=== PATIENT | male | born 1945 | race Caucasian/White ===

== ENCOUNTER → 2021-12-06 09:42 | Outpatient (BNVA) | payer OTHER, SELFPAY | PROVIDERS: Family Provider Family Medicine; PCP Family Medicine; Referring Provider Family Medicine; Visit Provider Podiatrist Foot & Ankle Surgery | DX: M21.612 Bunion of left foot (principal); M79.671 Pain in right foot; M79.672 Pain in left foot; M21.42 Flat foot [pes planus] (acquired), left foot | CPT/HCPCS: 73630; 99204 ==

== ENCOUNTER 2022-07-20 13:19 | Emergency (ER) | payer OTHER, SELFPAY ==
[2022-07-20 13:22] VITALS: BMI 22.3
[2022-07-20 13:30] VITALS: BP 146/81; PULSE 103; RESP 16; TEMP 36.4; O2SAT 98
--- NOTE | 2022-07-20 15:46 | CT_ITS ---
WS: [id number] CT HEAD TECHNIQUE: Noncontrast CT of the head obtained from the skullbase to the vertex. CLINICAL INFORMATION: visual disturbance COMPARISON: None. DLP: 1052.[address] scans at [facility] use at least one of these dose optimization techniques: automated e xposure control; mA and/or kV adjustment per patient size (includes targeted exams where dose is matc hed to clinical indication); or iterative reconstruction. FINDINGS: No evidence of intracranial hemorrhage or mass effect. Ventricular system and basal cisterns are baum nt. Moderate small vessel changes with moderate parenchymal volume loss. No extra-axial fluid collect ions. No evidence of mass or mass effect. Vascular calcification. Paranasal sinuses and mastoid air cells are well aerated. .Normal visualized soft tissues. Normal pos terior nasopharynx. CT/CT head wo con* [id number] IMPRESSION: 1. No evidence of intracranial hemorrhage or mass effect. 2. . Moderate small vessel changes with moderate parenchymal volume loss. 3. No acute intracranial findings.
[2022-07-20 16:18] LABS: Basophils % 0.5 %; Eosinophils # 0.3 10^3/uL (0.0-0.8); Eosinophils % 4.3 %; Hematocrit 47.8 % (42.0-52.0); Lymphocytes # 2.2 10^3/uL (0.8-4.8); Lymphocytes % 27.7 %; Mean Corpuscular HGB Conc 33.5 g/dL (30.0-36.0); Mean Corpuscular Hemoglobin 31.1 pg (28.0-34.0); Mean Corpuscular Volume 92.8 fl (80-94); Mean Platelet Volume 9.2 fL (7.4-10.4); Monocytes # 0.6 10^3/uL (0.2-0.9); Monocytes % 7.5 %; Neutrophils % 59.7 %; Nucleated Red Blood Cells % 0 %; Platelet Count 202 10^3/cmm (130-400); Red Blood Count 5.15 10^6/uL (4.1-5.3); Red Cell Distribution Width 13.6 % (12.1-15.1); White Blood Count 7.9 10^3/uL (4.0-10.0)
[2022-07-20 16:33] LABS: Alanine Aminotransferase 16 U/L (0-41); Albumin Level 4.3 g/dL (3.5-5.2); Alkaline Phosphatase 95 U/L (40-130); Anion Gap 13.7 (5-19); Aspartate Amino Transferase 21 U/L (0-40); Blood Urea Nitrogen 12 mg/dL (8-23); Calcium 9.8 mg/dL (8.5-10.5); Carbon Dioxide 28 mmol/L (22-29); Chloride 102 mmol/L (98-107); Globulin 3.2 g/dL (1.3-4.6); Glucose 125 mg/dL (65-115); Osmolality Calculated 289 mOsm/kg (285-295); Potassium 4.7 mmol/L (3.5-5.1); Sodium 139 mmol/L (136-145); Total Bilirubin 0.7 mg/dL (0.15-1.2); Total Protein 7.5 g/dL (6.6-8.7)
--- NOTE | 2022-07-20 16:39 | W.ED.NEUROSD ---
HPI - Neuro Symptoms/Deficit General: Chief Complaint: Neuro Symptoms/Deficit Stated Complaint: Memory issues, Numbness in left arm, Blurry vision Time Seen by Provider: 07/20/22 15:46 Source: patient Mode of arrival: ambulatory History of Present Illness: 77-year-old male who comes in complaining of intermittent vision loss and difficulty with his left hand. He states of loss of vision for a couple of minutes and then numbness in the left arm 40 coats is a while and over resolved. He took a baby aspirin this morning. He is no history no previous history of strokes or seizures he has something wrong with his eye it sounds like he may have a retinal tear or detachment of some sort. He is not able to tell me exactly what it is but he is scheduled for surgery for it. He has full vision now and a normal exam. Is been happening intermittently for some time. He is completely asymptomatic now. Onset (ago): day(s) Associated symptoms: Deny chest pain, malaise, nausea or vomiting Review of Systems Const: Denies: fever(s), chills, body aches, change in appetite, fatigue or malaise ENMT: Denies: throat pain, ear or mastoid pain, nasal discharge or nasal congestion Card: Denies: chest pain, edema, dyspnea on exertion or orthopnea Resp: Denies: dyspnea, productive cough or non-productive cough GI: Denies: abdominal pain, nausea, vomiting, hematemesis, coffee ground emesis, diarrhea, constipation, bloating, hematochezia or melena : Denies: flank pain, dysuria, urinary frequency or urinary urgency Skin/Breast: Denies: rash or pruritus Physical Exam Const: GENERAL APPEARANCE: cooperative and comfortable ORIENTATION/CONSCIOUSNESS: Yes awake, Yes oriented to person, Yes oriented to place and Yes oriented to time HENMT: COMMON NORMALS: normocephalic, atraumatic and hearing grossly normal bilaterally HEAD & SCALP: normocephalic and atraumatic Resp: COMMON NORMALS: normal respiratory effort, No retractions, No use of accessory muscles and clear to auscultation bilaterally AUSCULTATION: clear to auscultation bilaterally Cardio: COMMON NORMALS: regular rate, regular rhythm and No murmurs present (Cardio) RATE: regular rate RHYTHM: regular rhythm GI: COMMON NORMALS: Soft to palpation and No hepatosplenomegaly present AUSCULTATION: Yes normoactive bowel sounds PALPATION: Yes Soft to palpation, No Tenderness to palpation present (GI), No Guarding due to palpation present (GI) and Yes No hepatosplenomegaly present Extremity: COMMON NORMALS: normal to inspection, capillary refill normal, no clubbing, cyanosis or edema, no calf tenderness and no pedal edema Neuro: SENSORIUM/ORIENTATION: Yes oriented to person, Yes oriented to place and Yes oriented to time Skin: COMMON NORMALS: no rashes or lesions noted GENERAL SKIN EXAM: no rashes or lesions noted Course Vital Signs: Vital signs: Vital Signs Temperature 97.5 F L 07/20/22 13:30 Pulse Rate 89 07/20/22 17:08 Respiratory Rate 16 07/20/22 17:08 Blood Pressure 140/87 07/20/22 17:08 Pulse Oximetry 95 07/20/22 17:08 Oxygen Delivery Me thod 07/20/22 16:46 MDM - Neuro Symptoms/Deficit Medical Decision Making Patient is seen complaining of memory issues numbness left arm blurry vision at times he is losing his vision however he has no symptoms at all. Stroke score is 0 he is no active symptoms at this time its been going on at various degrees for the last couple of months and seems to be worsening. He is telling me that he has a scheduled surgery for some kind of retinal injury and I told him not to take any aspirin. Discussed with him and his son normally for stroke prevention if it were he had concerns of TIAs we did start him on aspirin and/or Plavix along with atorvastatin however I am concerned that we may cause an further problems with his retinal injury. He is reporting having complete loss of vision which I suspect more is going to be a mass effect at the optic chiasm and he should have an MRI. CT of the head today did not show any acute changes bleed or masses. We will set up outpatient MRI and encouraged him to follow-up ophthalmology return if he has active symptoms. Medical Records I reviewed the patient's medical records. Lab Data I reviewed the patient's lab results. 07/20/22 16:07 07/20/22 16:[address] 07/20/22 15:46 IMPRESSION: 1. No evidence of intracranial hemorrhage or mass effect. 2. . Moderate small vessel changes with moderate parenchymal volume loss. 3. No acute intracranial findings. Laboratory Results WBC 7.9 10^3/uL (4.0-10.0) 07/20/22 16:07 RBC 5.15 10^6/uL (4.1-5.3) 07/20/22 16:07 Hgb 16.0 g/dL (11.7-16.6) 07/20/22 16:07 Hct 47.8 % (42.0-52.0) 07/20/22 16:07 MCV 92.8 fl (80-94) 07/20/22 16:07 MCH 31.1 pg (28.0-34.0) 07/20/22 16:07 MCHC 33.5 g/dL (30.0-36.0) 07/20/22 16:07 RDW 13.6 % (12.1-15.1) 07/20/22 16:07 Plt Count 202 10^3/cmm (130-400) 07/20/22 16:07 MPV 9.2 fL (7.4-10.4) 07/20/22 16:07 Neut % (Auto) 59.7 % 07/20/22 16:07 Lymph % (Auto) 27.7 % 07/20/22 16:07 Simpson % (Auto) 7.5 % 07/20/22 16:07 Eos % (Auto) 4.3 % 07/20/22 16:07 Baso % (Auto) 0.5 % 07/20/22 16:07 Neut # (Auto) 4.70 10^3/uL (1.8-7.7) 07/20/22 16:07 Lymph # (Auto) 2.2 10^3/uL (0.8-4.8) 07/20/22 16:07 Simpson # (Auto) 0.6 10^3/uL (0.2-0.9) 07/20/22 16:07 Eos # (Auto) 0.3 10^3/uL (0.0-0.8) 07/20/22 16:07 Baso # (Auto) 0.0 10^3/uL (0.0-0.1) 07/20/22 16:07 Nucleated RBC % (auto) 0 % 07/20/22 16:07 Nucleated RBCs # 0.0 /100WBC 07/20/22 16:07 Sodium 139 mmol/L (136-145) 07/20/22 16:07 Potassium 4.7 mmol/L (3.5-5.1) 07/20/22 16:07 Chloride 102 mmol/L (98-107) 07/20/22 16:07 Carbon Dioxide 28 mmol/L (22-29) 07/20/22 16:07 Anion Gap 13.7 (5-19) 07/20/22 16:07 BUN 12 mg/dL (8-23) 07/20/22 16:07 Creatinine 1.1 mg/dL (0.7-1.2) 07/20/22 16:07 GFR Calculation Not Reportable 07/20/22 16:07 Glucose 125 mg/dL (65-115) H 07/20/22 16:07 Calculated Osmolality 289 mOsm/kg (285-295) 07/20/22 16:07 Calcium 9.8 mg/dL (8.5-10.5) 07/20/22 16:07 Total Bilirubin 0.7 mg/dL (0.15-1.2) 07/20/22 16:07 AST 21 U/L (0-40) 07/20/22 16:07 ALT 16 U/L (0-41) 07/20/22 16:07 Alkaline Phosphatase 95 U/L (40-130) 07/20/22 16:07 Total Protein 7.5 g/dL (6.6-8.7) 07/20/22 16:07 Albumin 4.3 g/dL (3.5-5.2) 07/20/22 16:07 Globulin 3.2 g/dL (1.3-4.6) 07/20/22 16:07 Discharge Plan Discharge Patient Disposition: Home Clinical Impression: Vision changes Condition: Stable Prescriptions: New atorvastatin 40 mg tablet 40 mg PO DAILY Qty: 30 0RF No Action betamethasone valerate 0.1 % cream 1 applic topical DAILY PRN (DME) Custom Low Profile Insoles and Orthopedic Shoes See Rx Instructions .Route .MEDSUPPLY Qty: 1 0RF Rx Instructions: As directed Discharge Orders: Discharge ED (Routine); Ordered 07/20/22 Ordered By: Eliazar Jensen Referrals: Douglas Gallegos [Primary Care Provider] - Discharge Diet: Usual diet Discharge Activity: Limit activity as instructed Patient Instructions: Opioid Safety, Pain Management Activity Restrictions/Additional Instructions: You are seen today with reports of vision changes. Recommend that you have an MRI of the brain with and without contrast Case management will set this up you should follow-up with your doctor and with your eye doctor. Normally we would recommend that you take aspirin and Plavix along with atorvastatin as prevention for stroke stroke or TIA however because of your upcoming eye surgery I am concerned that that may actually increase risk injury to your eye and recommend that you take the atorvastatin only for now. Follow-up with your primary care doctor and/or your ophthalmology surgeon as soon as you are able. Coding Level of Care Code ED Commercial Painter for Mitch Nixon
[2022-07-20 16:46] VITALS: BP 122/71; PULSE 82; RESP 16; O2SAT 96
[2022-07-20 17:08] VITALS: BP 140/87; PULSE 89; RESP 16; O2SAT 95
--- NOTE | 2022-07-24 10:29 | DCPLANNER ---
Addendum entered by Palma Morse 07/24/22 11:51: clinical team manager received notification from the [facility] that patients [facility] provider will order the MRI if needed. Original Note: clinical team manager had message to schedule an outpatient MRI for patient. Patient has [facility] insurance, the test cannot be ordered from the ER, patient was referred to neurology. clinical team manager sent patients information to the front office staff at neurology. Patients information will be printed and reviewed. Clinic will call patient with appointment information.
== END 2022-07-20 17:10 | disposition home or self-care (01) ==
PROVIDERS: Emergency Provider Family Medicine; PCP Family Medicine
DX: H53.9 Unspecified visual disturbance (principal)
CPT/HCPCS: 36415; 70450; 80053; 85025; 99284

== ENCOUNTER 2022-08-03 11:35 | Outpatient (CLI) | payer OTHER, SELFPAY ==
--- NOTE | 2022-08-03 11:45 | USCV_ITS ---
TitaFord kirk Age: 77 Gender: M : 1945 Exam Date: 08/03/2022 12:20 Ordering Phys: Breanne Langley MD Technologist: Amelia Villalba [place] [facility] [place]ication: TIA Risk Factors: None Previous Vascular Surgery: None Right Brachial BP: / Left Brachial BP: / Right Left Velocity (cm/s) Spectral Plaque Velocity (cm/s) Spectral Plaque Syst/Diast Broadening Syst/Diast Broadening 76.20/ 13.10 Prox CCA 71.80 / 8.50 57.80/ 9.20 Mid CCA 79.50 / 14.50 45.30/ 6.80 Hetro Distal CCA 64.10 / 15.40 Homo 402.60/159.50 Hetro Prox ICA 97.30 / 22.30 Hetro 164.90/52.30 Homo Mid ICA 131.50/ 35.50 Hetro 36.00/ 12.00 Distal ICA 85.40 / 25.00 177.10 ECA 103.90 5.28 ICA/CCA 1.65 Antegrade Vertebral Antegrade 61.10/ 9.90 cm/s 66.70/ 12.00 cm/s Tri Subclavian Tri 124.1 0 CONCLUSIONS Right ICA stenosis 70-99%. Recommend CTA neck. Severe atheromatous plaque right carotid bulb/ICA. Left ICA stenosis <50%. Mild atheromatous plaque left carotid bulb/ICA. Normal antegrade Doppler flow noted in the right vertebral artery. Normal antegrade Doppler flow noted in the left vertebral artery. Giovanny Katz MD (Electronically Signed) Final Date: 03 August 2022 14:34 S
== END 2022-08-03 11:36 | disposition home or self-care (01) ==
LOC: RAD 11:36
PROVIDERS: PCP Family Medicine; Visit Provider Family Medicine
DX: G45.9 Transient cerebral ischemic attack, unspecified (principal)
CPT/HCPCS: 93880

== ENCOUNTER → 2022-09-06 08:10 | Outpatient (BNVA) | payer OTHER, SELFPAY | PROVIDERS: PCP Family Medicine; Visit Provider Thoracic Surgery (Cardiothoracic Vascular Surgery) | DX: I65.23 Occlusion and stenosis of bilateral carotid arteries (principal); Z87.891 Personal history of nicotine dependence; Z79.82 Long term (current) use of aspirin | CPT/HCPCS: 99203 ==

== ENCOUNTER 2022-09-08 07:21 | Outpatient (CLI) | payer OTHER, SELFPAY ==
[2022-09-08] MEDS: iohexol 350 mg/mL 500 mL Btl (per mL) IV (07:43)
--- NOTE | 2022-09-08 08:00 | CT_ITS ---
WS: [id number] CT ANGIOGRAM CAROTID ARTERIES HISTORY: bilat carotid stenosis TECHNIQUE: CT angiogram is performed of the carotid arteries. During arterial injection imaging is ob tained from the skull base to the aortic arch in 1.25 mm imaging. Coronal and sagittal reformats are submitted, MIP imaging also reviewed. Additional multiplanar reformats of the carotid arteries are verdugo bmitted. NASCET criteria utilized. All CT scans at [facility] use at least one of these dose optimization techniques: automated exposure control; mA and/or kV adjustment per patient size (includ es targeted exams where dose is matched to clinical indication); or iterative reconstruction. CONTRAST: Omnipaque 350; 100 mL IV. DLP: 219.61 mGy.cm COMPARISON: Carotid ultrasound 08/03/2022 Right carotid: Common carotid artery: Atherosclerotic plaque. No high-grade stenosis in the proximal and mid carotid artery. Increasing plaque and stenosis at the bifurcation. High-grade stenosis begins at the very di stal RIGHT common carotid artery near the bifurcation. Internal carotid artery: Very high-grade stenosis at the origin of the RIGHT ICA extending into the b ifurcation. There is greater than 50% stenosis at the very distal common carotid artery with a high-g rade stenosis in the proximal RIGHT ICA. Proximal RIGHT ICA stenosis estimated near 90%. There is sli ght post stenotic dilatation. External carotid artery is patent. External carotid artery: Patent. Left carotid: Common carotid artery: Arises normally from the aortic arch. No significant stenosis. Internal carotid artery: Small amount of plaque but no stenosis. External carotid artery: Patent. Right vertebral artery: Unremarkable. Left vertebral artery: Unremarkable. Arises normally from the left subclavian artery. Subclavian arteries: Mild atherosclerosis noted bilaterally but no high-grade stenosis. Upper thorax: Centrilobular emphysema at the apices. Moderate atherosclerotic plaque and intimal thic kening in the aorta. Thyroid gland: Normal. Osseous structures: Moderate cervical spondylosis. Skull base: No destruction. Near complete opacification LEFT maxillary sinus. CT/CT angio neck 82612 IMPRESSION: 1. High-grade RIGHT ICA stenosis near 90%. Stenosis extends to involve the pj y distal RIGHT common carotid artery with extension into the RIGHT ICA. Correla atif with prior carotid ultrasound. 2. Less than 50% stenosis LEFT ICA.
[2022-09-08 08:15] LABS: Blood Urea Nitrogen 6 mg/dL (8-23)
== END 2022-09-08 07:22 | disposition home or self-care (01) ==
PROVIDERS: PCP Family Medicine; Visit Provider Thoracic Surgery (Cardiothoracic Vascular Surgery)
DX: I65.23 Occlusion and stenosis of bilateral carotid arteries (principal)
CPT/HCPCS: 70498; 82565; 84520; Q9967

== ENCOUNTER → 2022-09-13 12:33 | Outpatient (BNVA) | payer OTHER, SELFPAY | PROVIDERS: PCP Family Medicine; Visit Provider Thoracic Surgery (Cardiothoracic Vascular Surgery) | DX: I65.21 Occlusion and stenosis of right carotid artery (principal); Z87.891 Personal history of nicotine dependence | CPT/HCPCS: 99213 ==

== ENCOUNTER 2022-10-02 07:14 | Day surgery (SDC) | payer OTHER, SELFPAY ==
[2022-09-27 12:58] VITALS: BMI 22.7
[2022-09-27 13:29] LABS: Add Urine Microscopic? NO; Charge for UA Resulting for Rev
--- NOTE | 2022-09-27 13:31 | ECG_ITS ---
[facility] Test Date: 2022-09-27 Pat Name: Ford Brooks Department: Room: Gender: Male Account Manager Education: : 1945 Requested By: Yulissa Tamayo Order Number: [id number] Ethan MD: Darion Weston M.D. Measurements Intervals [place] Rate: 77 P: 0 FL: 0 QRS: -1 QRSD: 99 T: -18 QT: 371 QTc: 422 Interpretive Statements ATRIAL FIBRILLATION POSSIBLE LATERAL MYOCARDIAL INFARCTION , OF INDETERMINATE AGE [30 ms Q WAVE IN I/aVL/V5/V6] No previous ECG available for comparison Electronically Signed On 09-27-2022 21:32:51 CDT by Darion Weston M.D. [email or web address]
[2022-09-27 13:33] LABS: Basophils % 0.5 %; Eosinophils % 12.5 %; Hematocrit 45.2 % (42.0-52.0); Hemoglobin 14.7 g/dL (11.7-16.6); Lymphocytes # 1.9 10^3/uL (0.8-4.8); Lymphocytes % 22.4 %; Mean Corpuscular HGB Conc 32.5 g/dL (30.0-36.0); Mean Corpuscular Hemoglobin 30.8 pg (28.0-34.0); Mean Corpuscular Volume 94.8 fl (80-94); Mean Platelet Volume 9.6 fL (7.4-10.4); Monocytes # 0.6 10^3/uL (0.2-0.9); Monocytes % 7.6 %; Neutrophils # 4.69 10^3/uL (1.8-7.7); Neutrophils % 56.6 %; Nucleated Red Blood Cells % 0 %; Platelet Count 193 10^3/cmm (130-400); Red Blood Count 4.77 10^6/uL (4.1-5.3); Red Cell Distribution Width 13.9 % (12.1-15.1); White Blood Count 8.3 10^3/uL (4.0-10.0)
[2022-09-27 13:36] LABS: Bilirubin Urine Neg (Negative); Blood Urine Neg (Negative); Glucose Urine UA Norm (Normal); Ketones Urine Negative (Negative); Leukocyte Esterase Urine Negative (Negative); Nitrate Urine Negative (Negative); Protein Urine Neg (Negative); Urine Appearance Clear (CLEAR); Urine Color Yellow (Yellow); Urobilinogen Urine 4 mg/dL (Negative); pH Urine 6 (5-7)
[2022-09-27 13:59] LABS: Anion Gap 13.2 (5-19); Blood Urea Nitrogen 15 mg/dL (8-23); Calcium 9.1 mg/dL (8.5-10.5); Carbon Dioxide 28 mmol/L (22-29); Chloride 105 mmol/L (98-107); Glucose 88 mg/dL (65-115); Osmolality Calculated 294 mOsm/kg (285-295); Potassium 4.2 mmol/L (3.5-5.1); Sodium 142 mmol/L (136-145)
--- NOTE | 2022-09-27 14:46 | SUR.PREOP ---
Pre-operative appointment Pre-op completed. Instructions given, as well as bathing instructions. Patient verbalized understanding. Hibiclens bottle and bar soap given to patient. Patient instructed to hold Aspirin from now until after surgery. CBC, CMP, Cardiac T&S, and UA completed today. EKG also performed today, shows possible A-fib. Patient denies any previous history of a-fib. Dr. Potter aware of EKG, requested repeat. Repeat completed and Dr. Potter requests cardiac clearance. Attempt to get ahold of Dr. Gan's office made multiple times, no answer. Patient instructed that either the clinic or OPS will call him with an update or an appointment date.
--- NOTE | 2022-09-27 17:56 | ANES.PREANE2 ---
Pre-Anesthetic Assessment Height/Weight: Height 1.8 m Weight 73.936 kg Preop Diagnosis: Right carotid artery stenosis Operation Date: 10/02/22 07:30 Proposed Procedures p Carotid Endarterectomy 39636,I65.29(Right) - Douglas Gan MD Familial anesthetic complications: None Social No alcohol and No tobacco Exam alert, oriented x 3, clear to auscultation bilaterally and regular rate & rhythm Airway Mallampati: Class II Dentition: full CV/HEM a fib on EKG - will refer to cardiology, able to achieve > 4 MET without cardiac symptoms Anesthetic Plan ASA status: 3 Anesthesia: General Risk of > 500 ml blood loss (7ml/kg in children): Yes, adequate IV access and fluids planned Medications/Allergies Home Medications Medication Instructions Recorded Confirmed Last Taken Type Custom Low Profile Insoles and #1 ea 12/06/21 09/13/22 Unknown Rx Orthopedic Shoes betamethasone valerate 0.1 % 1 applic topical DAILY PRN psorasis 12/06/21 09/27/22 Unknown History topical cream atorvastatin 40 mg tablet 40 mg PO DAILY #30 tabs 07/20/22 09/27/22 09/26/22 Rx aspirin 81 mg tablet,delayed 81 mg PO DAILY 09/06/22 09/27/22 09/27/22 History release (Adult Low Dose Aspirin) ascorbic acid (vitamin C) 100 mg 100 mg PO DAILY 09/27/22 09/27/22 09/27/22 History tablet (Vitamin C) calcium phosphate,dibasic 77 tab PO 09/27/22 09/27/22 History mg-vitamin D3 400 unit tablet melatonin 10 mg tablet 10 mg PO DAILY 09/27/22 09/27/22 09/27/22 History multivitamin-iron (hematinic) tab 09/27/22 09/27/22 History Allergies Allergy/AdvReac Type Severity Reaction Status Date / Time Penicillins Allergy Unknown Unknown Verified 09/13/22 13:07 COUNTS INCLUDE 234 BEDS AT THE [facility] Anesthesia Medical History Carotid stenosis, bilateral Family History Father Hypertension Mother Hypertension Denies family history of Diabetes CAD (coronary artery disease) Cancer Social History Smoking and tobacco status: former smoker Quit status (tobacco): has quit using tobacco Year quit tobacco: 2008 Former quit date comment: smoked 3-4 packs per day for 40 years Alcohol intake: never Substance/Drug Use: current Substance/Drug use frequency: few times a week Household members: none Housing: House Marital status: Single Number of children: 0 service: Yes Pets and animals: No Data Anesthesia 09/27/22 12:58 09/27/22 12:58 Short CBC 09/27/22 Range/Units 12:58 WBC 8.3 (4.0-10.0) 10^3/uL Hgb 14.7 (11.7-16.6) g/dL Hct 45.2 (42.0-52.0) % MCV 94.8 H (80-94) fl Plt Count 193 (130-400) 10^3/cmm Neut % (Auto) 56.6 % Neut # (Auto) 4.69 (1.8-7.7) 10^3/uL BMP 09/27/22 12:58 Sodium 142 Potassium 4.2 Chloride 105 Carbon Dioxide 28 BUN 15 Creatinine 0.9 Glucose 88 Calcium 9.1 Urine 09/27/22 Range/Units 13:12 Urine Color Yellow (Yellow) Urine Appearance Clear (CLEAR) Urine pH 6 (5-7) Ur Specific [place] 1.020 (1.005-1.030) Urine Protein Neg (Negative) Urine Glucose (UA) Norm (Normal) Urine Ketones Negative (Negative) Urine Nitrate Negative (Negative) Urine Bilirubin Neg (Negative) Ur Leukocyte Esterase Negative (Negative) Blood Bank 09/27/22 12:58 Blood Type O Negative Rho(D) Type Negative Antibody Screen Negative Cardiac Studies: No Data to Display
== END 2022-10-05 07:15 | disposition home or self-care (01) ==
LOC: OR 10-05 07:14
PROVIDERS: PCP Family Medicine; Visit Provider Thoracic Surgery (Cardiothoracic Vascular Surgery)
DX: Z01.818 Encounter for other preprocedural examination (principal); I48.91 Unspecified atrial fibrillation; I65.21 Occlusion and stenosis of right carotid artery; Z87.891 Personal history of nicotine dependence
CPT/HCPCS: 36415; 80048; 81003; 85025; 86850; 86900; 86920; 93005

== ENCOUNTER → 2022-11-06 12:40 | Outpatient (BNVA) | payer OTHER, SELFPAY | PROVIDERS: PCP Family Medicine; Visit Provider Internal Medicine Cardiovascular Disease | DX: I65.23 Occlusion and stenosis of bilateral carotid arteries (principal); Z87.891 Personal history of nicotine dependence; Z79.82 Long term (current) use of aspirin | CPT/HCPCS: 99203 ==

== ENCOUNTER → 2022-11-15 09:42 | Outpatient (BNVA) | payer OTHER, SELFPAY | PROVIDERS: PCP Family Medicine; Visit Provider Thoracic Surgery (Cardiothoracic Vascular Surgery) | DX: I65.21 Occlusion and stenosis of right carotid artery (principal); Z87.891 Personal history of nicotine dependence | CPT/HCPCS: 99213 ==

== ENCOUNTER 2022-11-21 16:22 | Inpatient (IN) | payer OTHER, SELFPAY ==
[2022-11-19 07:17] VITALS: BMI 23.0
[2022-11-19 07:44] LABS: Basophils % 0.3 %; Eosinophils # 0.4 10^3/uL (0.0-0.8); Hematocrit 45.4 % (42.0-52.0); Hemoglobin 14.7 g/dL (11.7-16.6); Lymphocytes # 1.8 10^3/uL (0.8-4.8); Lymphocytes % 24.7 %; Mean Corpuscular HGB Conc 32.4 g/dL (30.0-36.0); Mean Corpuscular Hemoglobin 30.1 pg (28.0-34.0); Mean Platelet Volume 9.7 fL (7.4-10.4); Monocytes # 0.6 10^3/uL (0.2-0.9); Monocytes % 7.7 %; Neutrophils # 4.34 10^3/uL (1.8-7.7); Nucleated Red Blood Cells % 0 %; Platelet Count 172 10^3/cmm (130-400); Red Blood Count 4.88 10^6/uL (4.1-5.3); Red Cell Distribution Width 14.2 % (12.1-15.1); White Blood Count 7.1 10^3/uL (4.0-10.0)
--- NOTE | 2022-11-19 07:59 | P.ANESASSM_ITS ---
Pre-Anesthetic Assessment Height/Weight: Height 1.8 m Weight 74.843 kg Operation Date: 11/21/22 12:00 Proposed Procedures p right carotid 15092,I65.29(Right) - Douglas Gan MD Familial anesthetic complications: None Social No alcohol and No tobacco Exam alert, oriented x 3, clear to auscultation bilaterally and regular rate & rhythm Airway Mallampati: Class II Dentition: false Pulmonary None reported CV/HEM Atrial Fibrillation (Seen by Dr. Benavides) and None reported None reported Hepatic None reported GI None reported Metabolic None reported Neuropsych None reported Anesthetic Plan ASA status: 3 Anesthesia: General Other: A-line Risk of > 500 ml blood loss (7ml/kg in children): Yes, adequate IV access and fluids planned Medications/Allergies Home Medications Medication Instructions Recorded Confirmed Last Taken Type Custom Low Profile Insoles and #1 ea 12/06/21 11/15/22 11/18/22 Rx Orthopedic Shoes betamethasone valerate 0.1 % 1 applic topical DAILY PRN psorasis 12/06/21 11/19/22 11/18/22 History topical cream atorvastatin 40 mg tablet 40 mg PO DAILY #30 tabs 07/20/22 11/19/22 11/18/22 Rx aspirin 81 mg tablet,delayed 81 mg PO DAILY 09/06/22 11/19/22 11/18/22 History release (Adult Low Dose Aspirin) ascorbic acid (vitamin C) 100 mg 100 mg PO DAILY 09/27/22 11/19/22 11/18/22 History tablet (Vitamin C) calcium phosphate,dibasic 77 1 tab PO DAILY 09/27/22 11/19/22 11/18/22 History mg-vitamin D3 400 unit tablet melatonin 10 mg tablet 10 mg PO DAILY 09/27/22 11/19/22 11/18/22 History multivitamin-iron (hematinic) 1 tab PO DAILY 09/27/22 11/19/22 11/18/22 History Allergies Allergy/AdvReac Type Severity Reaction Status Date / Time Penicillins Allergy Unknown Unknown Verified 11/19/22 07:25 [facility] Anesthesia Medical History Carotid stenosis, bilateral Family History Father Hypertension Mother Hypertension Denies family history of Diabetes CAD (coronary artery disease) Cancer Social History Smoking and tobacco status: former smoker Quit status (tobacco): has quit using tobacco Year quit tobacco: 2008 Former quit date comment: smoked 3-4 packs per day for 40 years Alcohol intake: never Substance/Drug Use: current Substance/Drug use frequency: few times a week Household members: none Housing: House Marital status: Single Number of children: 0 service: Yes Pets and animals: No Data Anesthesia 11/19/22 07:30 11/19/22 07:30 Short CBC 11/19/22 Range/Units 07:30 WBC 7.1 (4.0-10.0) 10^3/uL Hgb 14.7 (11.7-16.6) g/dL Hct 45.4 (42.0-52.0) % MCV 93.0 (80-94) fl Plt Count 172 (130-400) 10^3/cmm Neut % (Auto) 61.0 % Neut # (Auto) 4.34 (1.8-7.7) 10^3/uL Cardiac Studies: No Data to Display
[2022-11-19 08:05] LABS: Alanine Aminotransferase 21 U/L (0-41); Albumin Level 4.1 g/dL (3.5-5.2); Alkaline Phosphatase 181 U/L (40-130); Anion Gap 12.7 (5-19); Aspartate Amino Transferase 28 U/L (0-40); Blood Urea Nitrogen 14 mg/dL (8-23); Calcium 9.3 mg/dL (8.5-10.5); Carbon Dioxide 27 mmol/L (22-29); Chloride 103 mmol/L (98-107); Globulin 3.2 g/dL (1.3-4.6); Glucose 116 mg/dL (65-115); Osmolality Calculated 287 mOsm/kg (285-295); Potassium 4.7 mmol/L (3.5-5.1); Sodium 138 mmol/L (136-145); Total Bilirubin 0.9 mg/dL (0.15-1.2); Total Protein 7.3 g/dL (6.6-8.7)
[2022-11-19 08:09] LABS: Add Urine Microscopic? NO; Charge for UA Resulting for Rev
[2022-11-19 08:25] LABS: Bilirubin Urine Neg (Negative); Blood Urine Neg (Negative); Glucose Urine UA Norm (Normal); Ketones Urine Negative (Negative); Leukocyte Esterase Urine Negative (Negative); Nitrate Urine Negative (Negative); Protein Urine Neg (Negative); Urine Appearance Clear (CLEAR); Urine Color Yellow (Yellow); Urobilinogen Urine 1 mg/dL (Negative); pH Urine 5 (5-7)
[2022-11-21] VITALS (17 sets, daily range): BP systolic 99–136; BP diastolic 49–78; PULSE 72–94; RESP 13–29; TEMP 36.7; O2SAT 93–100
[2022-11-21] MEDS: sodium chloride 0.9% 1,000 ML 30 ML IV (11:14)
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
--- NOTE | 2022-11-21 11:54 | P.ANESUD_ITS ---
Pre-Anesthetic Update Pre-Anesthetic Assessment: Date of Surgery/Procedure: 11/21/22 Preop Amira gnosis: right carotid endarterectomy Proposed Procedure: Operation Date: 11/21/22 12:00 Proposed Procedures p right carotid 42262,I65.29(Right) - Douglas Gan MD Any changes to Pre-Anesthetic Assessment?: No Last Intake: Intake Last Liquid Date 11/20/22 Last Liquid Time 17:00 Last Solid Date 11/20/22 Last Solid Time 17:00 Vitals: Temperature 98.0 F 11/21/22 10:37 Temperature Source Temporal Artery S can 11/21/22 10:37 Pulse Rate 81 11/21/22 10:37 Respiratory Rate 17 11/21/22 10:37 Blood Pressure 135/77 11/21/22 10:37 Blood Pressure Cat n 96 11/21/22 10:37 Pulse Oximetry 98 11/21/22 10:37 Oxygen Delivery Me thod Room Air 11/21/22 10:53 Exam: Pre-Anes Outpt Exam: alert, oriented x 3, clear to auscultation bilaterally and regular rate & rhythm Cardiac Studies: No Data to Display
[2022-11-21] MEDS: vancomycin 1,500 MG/300 ML PIGGYBACK 200 MG IV (12:15)
[2022-11-21] MEDS: heparin,porcine 1,000 unit/mL INJ 1 mL 1000 UNIT IRRIGATION (13:25)
[2022-11-21] MEDS: vancomycin 1,000 MG SDV 1000 MG IRRIGATION (13:28)
--- NOTE | 2022-11-21 16:23 | ANE.PACU2 ---
Inpatient post-anesthesia follow up: Airway intact: Yes Vital signs: Temperature 98.0 F Pulse Rate 81 Respiratory Rate 17 Blood Pressure 135/77 Pulse Oximetry 98 Oxygen Delivery Me thod Room Air Oxygen Flow Rate Fraction of Inspir ed Oxygen Hydration adequate: Yes Nausea and vomiting: No Pain level: 1 Mental status: Baseline
--- NOTE | 2022-11-21 16:29 | P.OP_ITS ---
Operative Report Date of procedure: November 21, 2022 Pre-op diagnosis: Preop Diagnosis 90% right internal carotid artery stenosis Post-op diagnosis: same Post-op findings: Very friable right carotid artery plaque Procedure done: Right carotid endarterectomy with patch angioplasty Implants: Hemashield patch Specimens removed/disposition: Friable carotid plaque in pieces Surgeon: Douglas Gan Estimated blood loss (mL): 50 Urine output (mL): 1,000 Complications: None Findings: Very friable plaque at carotid bifurcation and proximal right ICA. Condition: stable Disposition: ICU Brief History: Mr. Brooks is a pleasant 77-year-old gentleman with a 90% right ICA stenosis and a 2-month history of progressive frequency of TIAs which included right amaurosis and left upper extremity weakness. Due to his high-grade lesion and TIA symptoms, carotid endarterectomy was recommended to reduce his statistical increased risk for spontaneous CVA. Details, rationale, and risks of the surgery were very carefully and frankly discussed. Appropriate consents were reviewed and signed. Procedure: Mr. Brooks was placed on the OR table and underwent general endotracheal anesthesia with a neurological monitoring endotracheal tube as well as placement of a right radial arterial line. Bihemispheric monitoring pads were placed as well as grounding and sensing pads for nerve conduction evaluation during neck dissection.The entire upper chest and right neck were sterilely prepped and draped. Incision was made along the anterior border of the sternomastoid muscle and carried down to the platysma with cautery. Dissection from this point forward was carried out utilizing Metzenbaum scissors and limited use of bipolar cautery. The internal jugular vein was dissected free and the facial vein was ligated, oversewn, and divided. Dissection was continued down through the ansa cervicalis with preservation of major branches. Minor branches were divided if required to allow for adequate exposure. Nerve conduction evaluation was performed throughout the dissection for protection of the recurrent nerve. We subsequently reached the common carotid artery. Dissection was then continued proximally to distally across the bifurcation. Vessel loops were placed around the common carotid artery, internal carotid artery, and external carotid artery. Distally, the base of the hypoglossal nerve could be identified and was protected. The internal carotid artery disease went fairly high and extended above the level of the mandibular angle. This did require some traction in this region, but great care was taken to minimize pressure to the hypoglossal nerve, which was protected. Care was taken during this dissection to avoid injury to the vagus nerve. The patient was then heparinized with 10,000 units. The systolic blood pressure was elevated to 160. Following this, in a rapid sequenced fashion, the distal internal carotid artery was clamped followed by clamping of the common carotid artery and external carotid artery. #11 scalpel blade was used to open the common carotid artery proximally. Forte scissors were then utilized to extend this arteriotomy across the distal common carotid artery and ulcerated, very friable, and stenotic plaque and continue this further at the bifurcation across the calcific plaque in the internal carotid artery until we had reached normal intima. The internal carotid artery clamp was briefly flashed with evidence of brisk back bleeding, therefore we elected not to shunt. It should be noted that bi-hemispheric oximetry was recorded throughout the procedure. Next, a freer elevator was utilized to create a dissection plane the plaque from intima at the proximal portion of the arteriotomy. This was then divided with a #11 scalpel blade. This plaque was then further dissected along the intimal plane proxim ally to distally across the bifurcation. Utilizing an everting technique, plaque was removed from the external carotid artery with brisk flow. This plaque was then dissected free up the internal carotid artery to a feathered edge. The plaque was very friable and was removed in multiple pieces. Heparinized saline solution was utilized to remove any loose debris. Next, a Hemashield patch was brought into the field and sewn into position utilizing a running 6-0 Prolene suture, thereby completing our patch angioplasty. At the completion of the patch, the external carotid artery was opened followed by the common carotid artery and finally the internal carotid artery, thereby reestablishing cerebral flow. Areas of extravasation were repaired with 6-0 Prolene suture. I elected not to reverse heparin. Hemostasis was confirmed. The wound was irrigated with antibiotic solution. A small, flat, Fransico-Lopez drain was placed in the wound and connected to bulb suction. Sponge and needle count was correct. The wound was then closed in 2 layers of 3-0 Vicryl suture. Skin was reapproximated in a subcuticular manner with 4-0 Monocryl suture. A pressure dressing was then applied. He was awakened from anesthesia and spontaneous movement of all extremities as well as movement to command. Mr. Brooks will be monitored in the ICU for the next 24 hours.
[2022-11-21] MEDS: clopidogrel 75 mg Tablet PO (16:55)
[2022-11-21] MEDS: HYDROcodone-acetaminophen 5-325 mg Tablet 1 TAB PO (16:55)
[2022-11-21] MEDS: aspirin 325 mg Tablet 81 MG PO (16:55)
[2022-11-22] VITALS (19 sets, daily range): BP systolic 105–142; BP diastolic 57–77; PULSE 55–82; RESP 13–26; TEMP 36.1; O2SAT 93–98
--- NOTE | 2022-11-22 07:21 | P.DS_ITS ---
Discharge Providers Date of Admission: 11/21/22 16:22 Date of Discharge: November 22, 2022 Attending Provider at Admission: Douglas Gan MD Attending Provider at Discharge: Douglas Gan MD Primary Care Provider: Breanne Langley MD Reason for Visit Reason for Visit: 90% right internal carotid artery stenosis / TIA Brief History: Mr. Brooks is a 77-year-old gentleman referred to our service for recurrent TIA symptoms which included right amaurosis as well as left upper extremity weakness. Subsequent evaluation revealed increased velocities on carotid duplex study and confirmation of a 90% right ICA stenosis at the bifurcation by CTA. He was recommended that he undergo elective carotid endarterectomy for his high- grade lesion and concerns of embolization manifesting as TIA symptoms. Details of risk of procedure were carefully and frankly discussed. Mr. Brooks wished to proceed. Hospital Course Hospital Course Mr. Brooks was electively admitted on November 21 and underwent right carotid endarterectomy with patch angioplasty. Intraoperative findings included a very friable lesion in the proximal right ICA. Postoperatively, he convalesced in the ICU where he remained hemodynamically and neurologically stable and intact. He had low OZZIE drain output overnight and his OZZIE drain was discontinued this morning and his operative dressing was changed. He is tolerating diet well. No phonation or swallowing difficulties. He denies visual disturbances. Motor strength is 5/5 bilaterally. He remains in chronic atrial fibrillation. He will be discharged to home today in stable condition with scheduled follow-up in our clinic in 1 week. Physical Exam Const: COMMON NORMALS: no acute distress, patient oriented x3 and alert HENMT: COMMON NORMALS: normocephalic and atraumatic HEAD & SCALP: normocephalic and atraumatic Neck/C-Spine: COMMON NORMALS: no lymphadenopathy OTHER: Minimal swelling of the right side of the neck. Surgical incision is clean, dry, and intact. OZZIE drain was removed. 20 cc output overnight. Resp: COMMON NORMALS: normal respiratory effort and clear to auscultation bilaterally AUSCULTATION: clear to auscultation bilaterally Cardio: COMMON NORMALS: regular rate and No murmurs present (Cardio); negative for regular rhythm RATE: regular rate RHYTHM: abnormal rhythm OTHER: Chronic atrial fibrillation Extremity: COMMON NORMALS: no clubbing, cyanosis or edema Neuro: COMMON NORMALS: patient oriented x3, moves all extremities, no focal motor deficits and no sensory deficits noted SENSORIUM/ORIENTATION: Yes alert OTHER: Tongue is midline with protrusion. Voice quality is normal. No swallowing difficulties. Urinary Catheter Management: Cyr: Cath Placed During This Visit: yes Reason for Continuing Indwelling Catheter: Accurate Measurement of Urinary Output in Critically Ill Patients Urinary Catheter Date of Insertion: 11/21/22 Urinary Catheter Time of Insertion: 12:30 Discharge Data Studies Completed and Pending Pending at discharge Category Date Time Status Basic Metabolic Panel Routine Lab 11/21/22 10:10 Uncollected Complete Blood Count w/Auto Routine Lab 11/21/22 10:10 Uncollected Leukocyte Reduced RBC Routine Lab 11/21/22 10:57 Results Type and Screen Routine Lab 11/21/22 10:57 Results Urinalysis Routine Lab 11/21/22 10:10 Uncollected Pathology: Surgical [PTH] Routine Pth 11/21/22 15:56 Ordered Laboratory Results WBC 7.1 10^3/uL (4.0-10.0) 11/19/22 07:30 RBC 4.88 10^6/uL (4.1-5.3) 11/19/22 07:30 Hgb 14.7 g/dL (11.7-16.6) 11/19/22 07:30 Hct 45.4 % (42.0-52.0) 11/19/22 07:30 MCV 93.0 fl (80-94) 11/19/22 07:30 MCH 30.1 pg (28.0-34.0) 11/19/22 07:30 MCHC 32.4 g/dL (30.0-36.0) 11/19/22 07:30 RDW 14.2 % (12.1-15.1) 11/19/22 07:30 Plt Count 172 10^3/cmm (130-400) 11/19/22 07:30 MPV 9.7 fL (7.4-10.4) 11/19/22 07:30 Neut % (Auto) 61.0 % 11/19/22 07:30 Lymph % (Auto) 24.7 % 11/19/22 07:30 [place] % (Auto) 7.7 % 11/19/22 07:30 Eos % (Auto) 6.0 % 11/19/22 07:30 Baso % (Auto) 0.3 % 11/19/22 07:30 Neut # (Auto) 4.34 10^3/uL (1.8-7.7) 11/19/22 07:30 Lymph # (Auto) 1.8 10^3/uL (0.8-4.8) 11/19/22 07:30 [place] # (Auto) 0.6 10^3/uL (0.2-0.9) 11/19/22 07:30 Eos # (Auto) 0.4 10^3/uL (0.0-0.8) 11/19/22 07:30 Baso # (Auto) 0.0 10^3/uL (0.0-0.1) 11/19/22 07:30 Nucleated RBC % (auto) 0 % 11/19/22 07:30 Nucleated RBCs # 0.0 /100WBC 11/19/22 07:30 Sodium 138 mmol/L (136-145) 11/19/22 07:30 Potassium 4.7 mmol/L (3.5-5.1) 11/19/22 07:30 Chloride 103 mmol/L (98-107) 11/19/22 07:30 Carbon Dioxide 27 mmol/L (22-29) 11/19/22 07:30 Anion Gap 12.7 (5-19) 11/19/22 07:30 BUN 14 mg/dL (8-23) 11/19/22 07:30 Creatinine 1.0 mg/dL (0.7-1.2) 11/19/22 07:30 GFR Calculation Not Reportable 11/19/22 07:30 Glucose 116 mg/dL (65-115) H 11/19/22 07:30 Calculated Osmolality 287 mOsm/kg (285-295) 11/19/22 07:30 Calcium 9.3 mg/dL (8.5-10.5) 11/19/22 07:30 Total Bilirubin 0.9 mg/dL (0.15-1.2) 11/19/22 07:30 AST 28 U/L (0-40) 11/19/22 07:30 ALT 21 U/L (0-41) 11/19/22 07:30 Alkaline Phosphatase 181 U/L (40-130) H 11/19/22 07:30 Total Protein 7.3 g/dL (6.6-8.7) 11/19/22 07:30 Albumin 4.1 g/dL (3.5-5.2) 11/19/22 07:30 Globulin 3.2 g/dL (1.3-4.6) 11/19/22 07:30 Urine Color Yellow (Yellow) 11/19/22 07:35 Urine Appearance Clear (CLEAR) 11/19/22 07:35 Urine pH 5 (5-7) 11/19/22 07:35 Ur Specific [place] 1.010 (1.005-1.030) 11/19/22 07:35 Urine Protein Neg (Negative) 11/19/22 07:35 Urine Glucose (UA) Norm (Normal) 11/19/22 07:35 Urine Ketones Negative (Negative) 11/19/22 07:35 Urine Blood Neg (Negative) 11/19/22 07:35 Urine Nitrate Negative (Negative) 11/19/22 07:35 Urine Bilirubin Neg (Negative) 11/19/22 07:35 Urine Urobilinogen 1 mg/dL (Negative) H 11/19/22 07:35 Ur Leukocyte Esterase Negative (Negative) 11/19/22 07:35 Blood Type O Negative 11/21/22 10:57 Rho(D) Type Negative 11/21/22 10:57 Antibody Screen Negative 11/21/22 10:57 Crossmatch See Detail 11/21/22 10:57 Procedures Performed Right carotid endarterectomy with patch angioplasty on November 21, 2022 Vitals Last Vital Signs Temp 98.0 F 11/21/22 10:37 Pulse 81 11/21/22 10:37 Resp 17 11/21/22 10:37 BP 135/77 11/21/22 10:37 Pulse Ox 98 11/21/22 10:37 O2 Del Method Nasal Cannula 11/21/22 16:39 Discharge Plan Discharge Patient Disposition: Home Condition: Stable Prescriptions: New hydrocodone-acetaminophen 5-325 mg Tablet 1 tab PO Q6H PRN (Reason: Moderate Pain) Qty: 20 0RF clopidogrel 75 mg tablet 75 mg PO DAILY Qty: 30 5RF sulfamethoxazole-trimethoprim [Bactrim DS] 800-160 mg tablet 1 tab PO BID Qty: 6 0RF Continued aspirin [Adult Low Dose Aspirin] 81 mg tablet,delayed release (DR/EC) 81 mg PO DAILY betamethasone valerate 0.1 % cream 1 applic topical DAILY PRN (Reason: psorasis) (DME) Custom Low Profile Insoles and Orthopedic Shoes See Rx Instructions .Route .MEDSUPPLY Qty: 1 0RF Rx Instructions: As directed Vitamin C 100 mg Tablet 100 mg PO DAILY Century Tablet 1 tab PO DAILY Vitamin D (with calcium) 77-400 mg-unit Tablet 1 tab PO DAILY melatonin 10 mg Tablet 10 mg PO DAILY atorvastatin 40 mg tablet 40 mg PO DAILY Qty: 30 0RF Discharge Orders: Discharge Order (Routine); Ordered 11/22/22 Ordered By: Douglas Gan Referrals: Douglas Gan MD [Physician] - 1 week Discharge Diet: Usual diet Discharge Activity: Limit activity as instructed Patient Instructions: Opioid Safety Activity Restrictions/Additional Instructions: May remove bandage in 2 days May begin daily showers in 3 days Dry incision carefully after showers. May re-cover if desired to prevent irritation from clothing. No swimming or tub baths x 2 weeks No ointments on incision Report drainage, redness, heat, fever, increased pain, or swelling to clinic Take antibiotic twice daily for next 3 days No heavy lifting, pulling, pushing, or straining for 2 weeks Discharge Attestations Time Spent in Discharge Care*: less than 30 min Specific Discharge Activities: educating patient, discussing with patient case coordinator/social workers/dc planners, documenting/other paperwork and evaluating patient/reviewing data Status at Discharge: Cognitive status at discharge: cognitively intact , Behavioral status at discharge: cooperative , Functional status at discharge: independent ambulation , Overall status at discharge: patient is back to baseline Quality Metrics Clinical Quality Measures [ No reported AMI, CVA or VTE this stay] Coding Level of Care Code Acute Code for Chg Fwd Diagnoses
[2022-11-22] MEDS: pantoprazole DR 40 mg Tablet PO (07:47)
[2022-11-22] MEDS: clopidogrel 75 mg Tablet PO (07:48)
[2022-11-22] MEDS: atorvastatin 40 mg Tablet PO (07:48)
[2022-11-22] MEDS: aspirin 81 mg EC Tablet PO (07:48)
--- NOTE | 2022-11-22 09:26 | PC.NURSE ---
All discharge instructions gone over with patient and medications sent to pharmacy. Patient ambulated to pharmacy with family member with all belongings in hand.
== END 2022-11-22 09:15 | disposition home or self-care (01) | DRG 39 ==
LOC: ICU 16:23
PROVIDERS: Admitting Provider Thoracic Surgery (Cardiothoracic Vascular Surgery); PCP Family Medicine; Visit Provider Thoracic Surgery (Cardiothoracic Vascular Surgery)
PROC: 03CK0ZZ Extirpation of Matter from Right Internal Carotid Artery, Open Approach (ICD-10-PCS; CPT 35301; principal; 2022-11-21 12:00)
DX: I65.21 Occlusion and stenosis of right carotid artery (principal); Z86.73 Personal history of transient ischemic attack (TIA), and cerebral infarction without residual deficits; Z87.891 Personal history of nicotine dependence; Z79.82 Long term (current) use of aspirin; I48.91 Unspecified atrial fibrillation
CPT/HCPCS: 36415; 51702; 80053; 81003; 85025; 86850; 86900; 86920; 88304; 96376; J0330; J1100; J1644; J2370; J2405; J2704; J2720; J3010; J3370; J3490; J7030

== ENCOUNTER → 2022-12-06 13:30 | Outpatient (BNVA) | payer OTHER, SELFPAY | PROVIDERS: PCP Family Medicine; Visit Provider Thoracic Surgery (Cardiothoracic Vascular Surgery) | DX: Z98.890 Other specified postprocedural states (principal) | CPT/HCPCS: 99024 ==

== ENCOUNTER → 2023-01-08 10:14 | Outpatient (BNVA) | payer OTHER, SELFPAY | PROVIDERS: PCP Family Medicine; Visit Provider Internal Medicine Cardiovascular Disease | DX: I65.23 Occlusion and stenosis of bilateral carotid arteries (principal); Z98.890 Other specified postprocedural states; I48.91 Unspecified atrial fibrillation; Z87.891 Personal history of nicotine dependence | CPT/HCPCS: 99213 ==

== ENCOUNTER 2023-01-29 12:13 | Outpatient (CLI) | payer OTHER, SELFPAY ==
--- NOTE | 2023-01-29 12:45 | USCV_ITS ---
TitaFord kirk Age: 77 Gender: M : 1945 Exam Date: 01/29/2023 12:29 Ordering Phys: Douglas Gan MD (Andy) ([email or web address] – [place]) Technologist: JOHN Exam Location: [facility] [place] Indication: Stenosis. Post Endarterectomy Risk Factors: Previous Vascular Surgery: Right Brachial BP: / Left Brachial BP: / Right Left Velocity (cm/s) Spectral Plaque Velocity (cm/s) Spectral Plaque Syst/Diast Broadening Syst/Diast Broadening 77.90/ 14.20 Prox CCA 63.90 / 9.90 62.70/ 12.50 Mid CCA 78.30 / 16.50 58.20/ 9.00 Distal CCA 101.40/ 18.70 47.00/ 8.80 Prox ICA 98.10 / 29.80 58.20/ 12.50 Mid ICA 122.40/ 33.10 44.70/ 12.70 Distal ICA 71.70 / 17.60 125.90 ECA 58.40 0.75 ICA/CCA 1.21 Antegrade Vertebral Antegrade 50.70/ 11.20 cm/s 66.20/ 14.30 cm/s Tri Subclavian Tri 43.60 92.60 FINDINGS Right CEA new since 08/03/22 CONCLUSIONS Right ICA stenosis <50%. New Right CEA. Mild atheromatous plaque right carotid bulb/ICA. Left ICA stenosis <50%. Mild atheromatous plaque left carotid bulb/ICA. Normal antegrade Doppler flow noted in the right vertebral artery. Normal antegrade Doppler flow noted in the left vertebral artery. Giovanny Katz MD (Electronically Signed) Final Date: 29 January 2023 12:55 S
== END 2023-01-29 12:14 | disposition home or self-care (01) ==
PROVIDERS: PCP Family Medicine; Visit Provider Thoracic Surgery (Cardiothoracic Vascular Surgery)
DX: I65.23 Occlusion and stenosis of bilateral carotid arteries (principal); Z98.890 Other specified postprocedural states
CPT/HCPCS: 93880

== ENCOUNTER → 2023-02-21 11:59 | Outpatient (BNVA) | payer OTHER, SELFPAY | PROVIDERS: PCP Family Medicine; Visit Provider Thoracic Surgery (Cardiothoracic Vascular Surgery) | DX: Z98.890 Other specified postprocedural states (principal) | CPT/HCPCS: 99024 ==

== ENCOUNTER → 2023-07-09 11:29 | Outpatient (BNVA) | payer OTHER, SELFPAY | PROVIDERS: PCP Family Medicine; Visit Provider Internal Medicine Cardiovascular Disease | DX: I65.23 Occlusion and stenosis of bilateral carotid arteries (principal); Z98.890 Other specified postprocedural states; I48.91 Unspecified atrial fibrillation; Z87.891 Personal history of nicotine dependence | CPT/HCPCS: 99213 ==

== ENCOUNTER 2023-07-11 12:05 | Outpatient (CLI) | payer OTHER, SELFPAY ==
--- NOTE | 2023-07-11 13:30 | USCV_ITS ---
CeciliaFord Age: 78 Gender: M : 1945 Exam Date: 07/11/2023 13:20 Ordering Phys: Douglas Gan MD (Andy) [email or web address] [place] Technologist: Exam Location: [facility] [place] Indication: bilateral carotid stenosis Risk Factors: Previous Vascular Surgery: Right Brachial BP: / Left Brachial BP: / Right Left Velocity (cm/s) Spectral Plaque Velocity (cm/s) Spectral Plaque Syst/Diast Broadening Syst/Diast Broadening 104.60/20.60 Prox CCA 77.80 / 14.40 56.90/ 12.80 Mid CCA 69.70 / 16.20 60.80/ 12.80 Distal CCA 61.70 / 12.60 156.90/22.90 Hetro Prox ICA 130.40/ 37.40 128.60/25.50 Mid ICA 100.00/ 30.20 133.50/23.90 Distal ICA 121.00/ 33.70 198.10 ECA 77.70 2.60 ICA/CCA 2.10 Antegrade Vertebral Antegrade 87.40/ 8.90 cm/s 58.60/ 15.90 cm/s Tri Subclavian Tri 147.7 87.10 0 FINDINGS Comparison:. /10/16 Mild elevation of systolic velocity in the carotid arteries and increasing plaque. Antegrade flow vertebral arteries. CONCLUSIONS Right ICA stenosis 50-69%. Left ICA stenosis 50-69%. Progression of stenosis and plaque. Dr. Meaghan Shrestha DO (Electronically Signed) Final Date: 11 July 2023 15:25 S
== END 2023-07-11 12:06 | disposition home or self-care (01) ==
LOC: RAD 12:06
PROVIDERS: PCP Family Medicine; Visit Provider Thoracic Surgery (Cardiothoracic Vascular Surgery)
DX: I65.23 Occlusion and stenosis of bilateral carotid arteries (principal)
CPT/HCPCS: 93880

== ENCOUNTER → 2023-08-19 09:27 | Outpatient (BNVA) | payer OTHER, SELFPAY | PROVIDERS: PCP Family Medicine; Visit Provider Thoracic Surgery (Cardiothoracic Vascular Surgery) | DX: Z98.890 Other specified postprocedural states (principal); I65.23 Occlusion and stenosis of bilateral carotid arteries; Z87.891 Personal history of nicotine dependence; M21.612 Bunion of left foot; M21.42 Flat foot [pes planus] (acquired), left foot; L90 Atrophic disorders of skin; L60.3 Nail dystrophy; M20.12 Hallux valgus (acquired), left foot | CPT/HCPCS: 99213 ==

== ENCOUNTER → 2023-11-07 11:59 | Outpatient (BNVA) | payer OTHER, SELFPAY | PROVIDERS: PCP Family Medicine; Visit Provider Nurse Practitioner Family | DX: L40.0 Psoriasis vulgaris (principal); L57.0 Actinic keratosis; Q82.5 Congenital non-neoplastic nevus; D22.61 Melanocytic nevi of right upper limb, including shoulder | CPT/HCPCS: 17000; 99204 ==

== ENCOUNTER → 2023-11-21 10:39 | Outpatient (BNVA) | payer OTHER, SELFPAY | PROVIDERS: PCP Family Medicine; Visit Provider Podiatrist Foot & Ankle Surgery | DX: M21.612 Bunion of left foot (principal); M21.42 Flat foot [pes planus] (acquired), left foot; L60.3 Nail dystrophy | CPT/HCPCS: 99213 ==

== ENCOUNTER → 2024-01-02 10:13 | Outpatient (BNVA) | payer OTHER, SELFPAY | PROVIDERS: PCP Family Medicine; Visit Provider Nurse Practitioner Family | DX: L40.0 Psoriasis vulgaris (principal); L81.0 Postinflammatory hyperpigmentation | CPT/HCPCS: 99214 ==

== ENCOUNTER → 2024-04-09 13:18 | Outpatient (BNVA) | payer OTHER, SELFPAY | PROVIDERS: PCP Family Medicine; Visit Provider Internal Medicine Cardiovascular Disease | DX: I48.91 Unspecified atrial fibrillation (principal); Z87.891 Personal history of nicotine dependence; I65.23 Occlusion and stenosis of bilateral carotid arteries | CPT/HCPCS: 99214 ==

== ENCOUNTER → 2024-07-01 09:35 | Outpatient (BNVA) | payer OTHER, SELFPAY | PROVIDERS: PCP Family Medicine; Visit Provider Nurse Practitioner Family | DX: L40.0 Psoriasis vulgaris (principal); L81.0 Postinflammatory hyperpigmentation; L85.3 Xerosis cutis | CPT/HCPCS: 99214 ==

== ENCOUNTER → 2024-08-20 15:05 | Outpatient (BNVA) | payer OTHER, SELFPAY | PROVIDERS: PCP Family Medicine; Visit Provider Internal Medicine Cardiovascular Disease | DX: I25.10 Atherosclerotic heart disease of native coronary artery without angina pectoris (principal); I10 Essential (primary) hypertension; I48.91 Unspecified atrial fibrillation; Z87.891 Personal history of nicotine dependence; Z79.82 Long term (current) use of aspirin | CPT/HCPCS: 99214 ==

== ENCOUNTER → 2024-10-08 09:01 | Outpatient (BNVA) | payer OTHER, SELFPAY | PROVIDERS: PCP Family Medicine; Visit Provider Nurse Practitioner Family | DX: I65.23 Occlusion and stenosis of bilateral carotid arteries (principal); I48.91 Unspecified atrial fibrillation; Z79.82 Long term (current) use of aspirin; I10 Essential (primary) hypertension; Z87.891 Personal history of nicotine dependence | CPT/HCPCS: 93005; 99213 ==

== ENCOUNTER 2024-10-22 07:28 | Outpatient (CLI) | payer SELFPAY ==
[2024-10-22 09:23] LABS: Basophils % 0.4 %; Eosinophils # 0.3 10^3/uL (0.0-0.8); Eosinophils % 3.5 %; Hematocrit 46.2 % (37-53); Lymphocytes # 1.9 10^3/uL (0.8-4.8); Lymphocytes % 22.3 %; Mean Corpuscular HGB Conc 32.5 g/dL (30-55); Mean Corpuscular Hemoglobin 30.7 pg (27-33); Mean Corpuscular Volume 94.5 fl (82-101); Mean Platelet Volume 9.6 fL (7.4-10.4); Monocytes # 0.7 10^3/uL (0.2-0.9); Monocytes % 8.1 %; Neutrophils # 5.44 10^3/uL (1.8-7.7); Neutrophils % 65.5 %; Nucleated Red Blood Cells % 0 %; Platelet Count 177 10^3/cmm (157-399); Red Blood Count 4.89 10^6/uL (3.85-5.65)
== END 2024-10-22 07:29 | disposition home or self-care (01) ==
PROVIDERS: PCP Family Medicine; Visit Provider Nurse Practitioner Family
DX: I50.9 Heart failure, unspecified (principal); R06.02 Shortness of breath
CPT/HCPCS: 36415; 85025

== ENCOUNTER → 2024-11-12 09:38 | Outpatient (BNVA) | payer OTHER, SELFPAY | PROVIDERS: PCP Family Medicine; Visit Provider Podiatrist Foot & Ankle Surgery | DX: M21.612 Bunion of left foot (principal); M21.42 Flat foot [pes planus] (acquired), left foot; L60.3 Nail dystrophy | CPT/HCPCS: 99213 ==

== ENCOUNTER 2024-11-19 08:29 | Outpatient (CLI) | payer OTHER, SELFPAY ==
--- NOTE | 2024-11-19 09:30 | USCV_ITS ---
TitaFord kirk Age: 79 Gender: M : 1945 Exam Date: 11/19/2024 09:17 Ordering Phys: Soledad Perez NP Technologist: Exam Location: [facility] – [place]_ Indication: rt side endart Risk Factors: Previous Vascular Surgery: Right Brachial BP: / Left Brachial BP: / Right Left Velocity (cm/s) Spectral Plaque Velocity (cm/s) Spectral Plaque Syst/Diast Broadening Syst/Diast Broadening 99.60/ 15.40 Prox CCA 78.00 / 17.80 97.00/ 15.40 Mid CCA 88.00 / 19.80 93.00/ 12.80 Distal CCA 82.00 / 17.80 / Hetro Prox ICA 52.60 / 14.80 Hetro 93.60/ 12.60 Mid ICA 90.00 / 23.50 Hetro 42.80/ 9.40 Distal ICA 87.70 / 21.80 173.80 ECA 65.50 1.00 ICA/CCA 1.10 Antegrade Vertebral Antegrade 42.80/ 0.00 cm/s 45.30/ 8.60 cm/s Bi Subclavian Bi 92.00 141.0 0 FINDINGS Comparison:. 07/11/23 Right endarterectomy. No significant elevation of systolic or diastolic velocities. Mixture of calcified and noncalcified plaque in the bifurcations. CONCLUSIONS Bilateral ICA stenosis less than 50%. Prior right endarterectomy. Dr. Meaghan Shrestha DO (Electronically Signed) Final Date: 19 November 2024 10:16 S
== END 2024-11-19 08:30 | disposition home or self-care (01) ==
PROVIDERS: PCP Family Medicine; Visit Provider Nurse Practitioner Family
DX: I65.23 Occlusion and stenosis of bilateral carotid arteries (principal); Z98.890 Other specified postprocedural states
CPT/HCPCS: 93880

== ENCOUNTER → 2025-01-07 08:50 | Outpatient (BNVA) | payer OTHER, SELFPAY | PROVIDERS: PCP Family Medicine; Visit Provider Nurse Practitioner Family | DX: L40.0 Psoriasis vulgaris (principal); L81.0 Postinflammatory hyperpigmentation; L85.3 Xerosis cutis; L57.0 Actinic keratosis | CPT/HCPCS: 17000; 99214 ==

== ENCOUNTER → 2025-02-18 08:40 | Outpatient (BNVA) | payer OTHER, SELFPAY | PROVIDERS: PCP Family Medicine; Visit Provider Nurse Practitioner Family | DX: L40.0 Psoriasis vulgaris (principal); Q82.5 Congenital non-neoplastic nevus; L85.3 Xerosis cutis | CPT/HCPCS: 99214 ==

== ENCOUNTER → 2025-03-31 12:03 | Outpatient (BNVA) | payer OTHER, SELFPAY | PROVIDERS: PCP Family Medicine; Visit Provider Internal Medicine Cardiovascular Disease | DX: I48.91 Unspecified atrial fibrillation (principal); I65.23 Occlusion and stenosis of bilateral carotid arteries; Z79.01 Long term (current) use of anticoagulants; Z79.82 Long term (current) use of aspirin | CPT/HCPCS: 99212 ==